=== PATIENT | female | born 1965 | race Caucasian/White ===

== ENCOUNTER 2023-08-14 08:03 | Emergency (ER) | payer MEDICAID ==
[~2023-08-14] VITALS: Ht 167.6 cm; Wt 70.0 kg
[2023-08-14 08:08] VITALS: BP 155/90; PULSE 118; O2SAT 97
[2023-08-14 09:52] VITALS: RESP 18; TEMP 98
== END 2023-08-14 09:55 | disposition home or self-care (01) ==
LOC: ER 08:04
DX: S50.11XA Contusion of right forearm, initial encounter (principal); M79.601 Pain in right arm; Y08.89XA Assault by other specified means, initial encounter; Y93.89 Activity, other specified; Y92.89 Other specified places as the place of occurrence of the external cause; Y99.8 Other external cause status
CPT/HCPCS: 73090; 99283